=== PATIENT | female | born 2000 | race Caucasian/White ===

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

== ENCOUNTER 2019-01-15 16:02 | Outpatient (REF) | payer BC, SELFPAY ==
[2019-01-19 13:33] LABS: Chlamydia Result Negative; GC Result Negative; Specimen Description CERVIX
== END 2019-01-15 16:22 ==
LOC: LBN 16:02
PROVIDERS: PCP Pediatrics; Visit Provider Nurse Practitioner Women's Health
DX: Z11.3 Encounter for screening for infections with a predominantly sexual mode of transmission (principal)
CPT/HCPCS: 87491; 87591

== ENCOUNTER 2019-01-27 11:28 | Outpatient (CLI) | payer BC, SELFPAY ==
--- NOTE | 2019-01-27 13:00 | DI.RAD_ITS ---
SYMPTOMS/DIAGNOSIS: STERNAL CHEST PAIN WITH DEEP BREATHING/COUGHING, H/O ASTHMA, R07.9 PA AND LATERAL CHEST: The heart is normal in size. The lungs are clear. The mediastinal structures and pleura appear intact. CONCLUSION: Normal chest.
== END 2019-01-27 11:48 ==
PROVIDERS: PCP Pediatrics; Visit Provider Nurse Practitioner Family
DX: R07.89 Other chest pain (principal); R05 Cough
CPT/HCPCS: 71046

== ENCOUNTER 2019-02-04 08:29 | Outpatient (REF) | payer BC, SELFPAY | END 2019-02-04 08:49 | LOC: NCHCN 08:29 | PROVIDERS: PCP Pediatrics; Visit Provider Nurse Practitioner Family | DX: J02.9 Acute pharyngitis, unspecified (principal) | CPT/HCPCS: 87077; 87070 ==

== ENCOUNTER 2019-03-04 01:57 | Outpatient (CLI) | payer BC, SELFPAY ==
[2019-03-04] MEDS: Methacholine 100 MG VIAL IH (15:31)
[2019-03-04] MEDS: Inhaler, Assist Device 1 EACH MC (15:32)
[2019-03-04] MEDS: Albuterol HFA 18 GM 200 PUFF INH IH (15:32)
--- NOTE | 2019-03-04 15:40 | PFT_ITS ---
PULMONARY FUNCTION TEST REPORT DATE OF SERVICE: March 04, 2019 REQUESTING PROVIDER: Roxanna Nguyen N.P. Spirometry shows no evidence of obstructive airways disease; no bronchodilator testing was carried out. Lung volumes show no evidence of restriction. Diffusion capacity normal. Airways resistance normal. IMPRESSION: Normal pulmonary function study. Clinical correlation recommended. If the diagnosis of asthma is in question, proceeding with methacholine challenge testing may prove to be useful. /jose david D/ METHACHOLINE CHALLENGE TEST DATE OF SERVICE: March 04, 2019 After normal pulmonary function study, methacholine challenge testing was carried out up to a methacholine concentration of 16 mg/dL, at which point the patient had a 9% drop in FEV1. IMPRESSION: Negative methacholine challenge test. Clinical correlation recommended. /jose david D/
== END 2019-03-04 02:17 ==
PROVIDERS: PCP Pediatrics; Visit Provider Nurse Practitioner Family
DX: R07.9 Chest pain, unspecified (principal); J45.990 Exercise induced bronchospasm
CPT/HCPCS: 94060; 94150; 94726; 94729; 95070; 94010; J7674

== ENCOUNTER 2019-03-06 01:15 | Outpatient (CLI) | payer BC, SELFPAY ==
--- NOTE | 2019-03-06 09:01 | DI.RAD_ITS ---
SYMPTOM/DIAGNOSIS: BILAT LEG PAIN, M79.606 RIGHT LEG: No priors. No bone, joint or soft tissue abnormality is identified. LEFT LEG: Two views. No priors. No bone, joint or soft tissue abnormality is identified.
== END 2019-03-06 01:35 ==
PROVIDERS: PCP Physician Assistant Medical; Visit Provider Physician Assistant Medical
DX: M79.604 Pain in right leg (principal); M79.605 Pain in left leg
CPT/HCPCS: 73590

== ENCOUNTER 2020-01-28 02:41 | Outpatient (CLI) | payer BC, SELFPAY ==
--- NOTE | 2020-01-28 11:20 | DI.US_ITS ---
EXAM: US BREAST LT COMPLETE CLINICAL HISTORY: breast pain with cystic changes at 6o'clock, fibrocystic breast changes TECHNIQUE: Ultrasound performed using standard protocol. COMPARISON: No exams were available for comparison FINDINGS: Breast ultrasound was performed to evaluate reported breast discomfort. There is also a question pal pable abnormality in inferior portion of the breast. There is no mass or cyst identified in the breast. Irregular heterogeneous echogenicity of breast pa renchyma noted particularly in the inferior breast consistent dense fibroglandular tissue. IMPRESSION: Negative breast ultrasound, if there is high clinical suspicion of a palpable breast mass additional evaluation with mammography or biopsy may be considered. DATA REPOSITORY:
== END 2020-01-28 03:01 ==
PROVIDERS: PCP Physician Assistant Medical; Visit Provider Nurse Practitioner Women's Health
DX: N64.4 Mastodynia (principal); N60.22 Fibroadenosis of left breast; N60.12 Diffuse cystic mastopathy of left breast
CPT/HCPCS: 76642

== ENCOUNTER 2020-08-22 11:00 | Outpatient (REF) | payer BC, SELFPAY ==
--- NOTE | 2020-08-22 09:45 | PAPFT_PTH ---
PATIENT: Adrianna Dinero LOC: [facility] U#:[id number] AGE/SX: 20/F ROOM: RE08/22/[address]: Shivani Diaz NP : 2000 BED: DIS: 08/22/2020 SPEC #: [id number] RECD: 08/22/20 12:46 STATUS: JARAD RELulú #: [id number] EMANUEL: 08/22/20 09:[address]: Shivani Diaz NP [facility] RECD BY: Kayleigh Madrigal ENTERED: 08/22/20 12:46 SP TYPE: PAPFT OTHR DR: Lupis Stiles Tissues: 1 - CX/ENDOCX FOR PAP SMEARS Procedures: PAP THIN PREP/[facility] Screening Comments: [id number]
== END 2020-08-22 11:20 ==
LOC: LBN 11:00
PROVIDERS: PCP Physician Assistant Medical; Visit Provider Nurse Practitioner Women's Health
DX: Z12.4 Encounter for screening for malignant neoplasm of cervix (principal); R87.610 Atypical squamous cells of undetermined significance on cytologic smear of cervix (ASC-US)
CPT/HCPCS: 88142

== ENCOUNTER 2021-08-28 09:07 | Outpatient (REF) | payer BC, SELFPAY ==
--- NOTE | 2021-08-28 08:40 | PAPFT_PTH ---
PATIENT: Adrianna Dinero LOC: [facility] U#:[id number] AGE/SX: 21/F ROOM: RE08/28/[address]: Shivani Diaz NP : 2000 BED: DIS: 08/28/2021 SPEC #: [id number] RECD: 08/28/21 12:51 STATUS: JARAD LÓPEZ #: [id number] EMANUEL: 08/28/21 08:[address]: Shivani Diaz NP DEPT: [facility] Cytology RECD BY: Kayleigh Madrigal ENTERED: 08/28/21 12:51 SP TYPE: PAPFT OTHR DR: Lupis Stiles Tissues: 1 - CX/ENDOCX FOR PAP SMEARS Procedures: PAP THIN PREP/[facility] Screening Comments: [id number] (CHLAMYDIA/GC)
[2021-08-30 07:28] LABS: Chlamydia Result Negative (Negative); GC Result Negative (Negative)
== END 2021-08-28 09:08 | disposition home or self-care (01) ==
LOC: LBN 09:07
PROVIDERS: PCP Physician Assistant Medical; Visit Provider Nurse Practitioner Women's Health
DX: Z11.3 Encounter for screening for infections with a predominantly sexual mode of transmission (principal); Z12.4 Encounter for screening for malignant neoplasm of cervix; R87.612 Low grade squamous intraepithelial lesion on cytologic smear of cervix (LGSIL)
CPT/HCPCS: 87491; 87591; 88142